=== PATIENT | female | born 1980 | race Caucasian/White ===

== ENCOUNTER 2016-10-13 16:48 | Inpatient (IN) | payer OTHER ==
[~2016-10-13] VITALS: Ht 152.4 cm; Wt 76.2 kg
[2016-10-13 17:29] LABS: ABSOLUTE BASOPHIL COUNT 0 /CUMM (0.0-0.2); ABSOLUTE EOSINOPHIL COUNT 0.1 /CUMM (0.0-0.7); ABSOLUTE GRANULOCYTE CT 10.5 /CUMM (1.4-6.5); ABSOLUTE LYMPH COUNT 2.8 /CUMM (1.2-3.4); ABSOLUTE MONOCYTE COUNT 0.5 /CUMM (0.10-0.60); HEMATOCRIT 34.1 % (37-47); MEAN CORPUSCULAR HGB 31.7 PG (27.0-31.0); MEAN CORPUSCULAR HGB CONC 34.6 G/DL (33.0-37.0); MEAN CORPUSCULAR VOLUME 91.5 FL (81.0-99.0); MEAN PLATELET VOLUME 7.5 FL (7.4-10.4); PLATELET COUNT 249 /CUMM (130-400); RED BLOOD CELL CT 3.73 /CUMM (4.20-5.40); WHITE BLOOD CELL COUNT 13.9 /CUMM (4.8-10.8)
[2016-10-14 00:29] VITALS: BP 110/62
[2016-10-14 08:11] LABS: ABSOLUTE BASOPHIL COUNT 0 /CUMM (0.0-0.2); ABSOLUTE EOSINOPHIL COUNT 0 /CUMM (0.0-0.7); BASOPHIL % 0 % (0.0-2.0); EOSINOPHIL % 0 % (0-5)
[2016-10-14 08:26] LABS: ABSOLUTE MONOCYTE COUNT 0.3 /CUMM (0.10-0.60); GRANULOCYTE % 93.1 % (42.2-75.2); MEAN CORPUSCULAR HGB 32.1 PG (27.0-31.0); MEAN CORPUSCULAR HGB CONC 34.9 G/DL (33.0-37.0); MEAN PLATELET VOLUME 8.8 FL (7.4-10.4); PLATELET COUNT 203 /CUMM (130-400); RBC DISTRIBUTION WIDTH 13.3 % (11.5-14.5)
[2016-10-14 08:30] LABS: HEMATOCRIT 28.5 % (37-47)
[2016-10-14 09:24] LABS: WHITE BLOOD CELL COUNT 18.3 /CUMM (4.8-10.8)
--- NOTE | 2016-10-15 10:31 | PN- Post Delivery/GYN ---
Subjective Subjective: Overall doing well. Has some pain, though controlled well with PO meds. Ambulating, voiding and passing flatus. Eating well with no nausea or vomiting. Minimal vaginal bleeding. Not . Denies f/c, GREEN, BV, RUQ pain Review of Systems: Per above Objective Last 24 Hrs of Vital Signs/I&O 97.1 67 18 122/70 99% Physical Exam: NAD RRR S1 and S2 Abd: Minimal TTP (expected), no rebound, hypoactive BS. Incision: C/D/I Current Medications: Current Medications Sig/Angi Start time Last Medication Dose Route Stop Time Status Admin Diphenhydramine HCl 50 MG Q6P PRN 10/13 2200 DC IM 10/14 2158 Docusate Sodium 100 MG .STK-MED ONE 10/14 1950 DC PO 10/14 1950 Docusate Sodium 100 MG AT BEDTIME PRN 10/13 2200 AC 10/14 PO 1950 Enoxaparin Sodium 40 MG DAILY 10/14 1000 AC 10/15 SC 1005 Ibuprofen 800 MG .STK-MED ONE 10/14 1540 DC PO 10/14 1541 Ibuprofen 800 MG Q6P PRN 10/13 2200 AC 10/15 PO 0636 Ketorolac 30 MG Q6P PRN 10/13 2200 DC 10/14 Tromethamine IV 10/14 2158 0345 Lactated Ringer's 1,000 ML Q8H 10/13 2200 AC 10/14 IV 0400 Magnesium Hydroxide 30 ML DAILY NEEDED PRN 10/13 220 AC PO Nicotine 14 MG DAILY 10/14 1000 AC 10/15 TOP 1004 Oxycodone/ 1 TAB Q4P PRN 10/13 2199 AC 10/14 Acetaminophen PO 1009 Oxycodone/ 2 TAB Q4P PRN 10/13 2200 AC 10/15 Acetaminophen PO 1006 Simethicone 80 MG Q6P PRN 10/14 0530 AC 10/14 PO 1952 Assessment/Plan Assessment/Plan 36 yo female POD#2 s/p rLTCS Overall doing well Continue PO meds PRN for pain Continue to encourage ambulation and PO intake Monitor vitals, UOP and vag bleeding Patient with hx of drug abuse, +Utox on presentation (opiods and amphetamines). DCFS is aware and will follow up on Monday. Patient was made aware of this and told baby is to stay in the hospital until clearance given by DCFS, however possible for patient to be discharged home tomorrow and to room in with until then. Decision to be made tomorrow. Problem List: 1. Postoperative care 2. section Attending MD Review Statement Attending Statement Attending MD Statement: examined this patient, discussed with family, reviewed EMR data (avail), discussed with nursing
--- NOTE | 2016-10-16 08:31 | PN- Post Delivery/GYN ---
Subjective Subjective: Overall doing well. Pain controlled well with PO meds. Ambulating, voiding and passing flatus. Eating well with no nausea or vomiting. Minimal vaginal bleeding. Not . Denies f/c, GREEN, BV, RUQ pain Review of Systems: per above Objective Last 24 Hrs of Vital Signs/I&O WNL Physical Exam: NAD RRR CTAB Abd: Good BS, minimal TTP, no rebound, Fundus firm and below umbilicus Inc: C/D/I Ext: 1-2+ pitting edema Assessment/Plan Assessment/Plan POD#3 s/p LTCS Overall doing well Continue pain control, ambulation and monitoring vitals Continue to encourage IS Will plan to discharge home in AM. Problem List: 1. Postoperative care 2. section Attending MD Review Statement Attending Statement Attending MD Statement: examined this patient, reviewed EMR data (avail), discussed with nursing
[2016-10-17] MEDS ORDERED: NICOTINE PATCH1 EAC2 TOP (12:19)
[2016-10-17] MEDS ORDERED: VENTOLIN HFA18 GM INH (12:19)
[2016-10-17] MEDS ORDERED: PERCOCET 5-3251 EACH PO (12:19)
[2016-10-17] MEDS ORDERED: IBUPROFEN800 M1 PO (12:19)
[2016-10-17] MEDS ORDERED: DOCUSATE SODIU100 M3 PO (12:19)
== END 2016-10-17 16:05 | DRG 540 ==
LOC: GNO 16:48
PROVIDERS: ADMIT Obstetrics & Gynecology
PROC: 10D00Z1 Extraction of Products of Conception, Low, Open Approach (ICD-10-PCS; principal; 2016-10-13)
DX: O41.03X0 Oligohydramnios, third trimester, not applicable or unspecified (principal); O36.5930 Maternal care for other known or suspected poor fetal growth, third trimester, not applicable or unspecified; O99.334 Smoking (tobacco) complicating childbirth; O69.81X0 Labor and delivery complicated by cord around neck, without compression, not applicable or unspecified; F17.210 Nicotine dependence, cigarettes, uncomplicated; Z3A.37 37 weeks gestation of pregnancy; Z37.0 Single live birth
CPT/HCPCS: GNOP; GNOS; 80307; 81001; 87086; 87389; J0690; J1650; J1885; J3490; J7120